=== PATIENT | female | born 2000 | race Caucasian/White ===

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

== ENCOUNTER 2019-12-15 16:07 | Emergency (ER) | payer BC ==
[2019-12-15 16:22] VITALS: BP 97/59
[2019-12-15] MEDS ORDERED: Lidocaine 1% MPF ** 5 ML VIAL INJ ONE (16:36)
--- NOTE | 2019-12-15 16:57 | ED ---
Upper Extremity Pain - HPI Summary HPI Summary: 19-year-old female presents with left little finger injury. She states she jammed it playing basketball. Unable to use the finger and there is deformity present. is right handed. This has never happened before. Denies any numbness or tingling. Has deformity noted to the finger. Has no medical conditions. - History of Current Complaint Chief Complaint: EDExtremityUpper Stated Complaint: FRACTURED FINGER PER EMS Time Seen by Provider: 12/15/19 16:23 Hx Last Menstrual Period: 03/25/14 - Allergies/Home Medications Allergies/Adverse Reactions: Allergies Allergy/AdvReac Type Severity Reaction Status Date / Time vancomycin Allergy Edema Verified 05/04/18 15:31 Home Medications: Home Medications NK [No Home Medications Reported] 12/15/19 [History Confirmed 12/15/19] PMH/Surg Hx/FS Hx/Imm Hx Endocrine/Hematology History: Denies: Hx Diabetes, Hx Thyroid Disease Cardiovascular History: Denies: Hx Hypertension Respiratory History: Denies: Hx Asthma, Hx Chronic Obstructive Pulmonary Disease (COPD) GI History: Denies: Hx Ulcer Infectious Disease History: No Infectious Disease History: Denies: Hx Clostridium Difficile, Hx Hepatitis, Hx Human Immunodeficiency Virus (HIV), Hx of Known/Suspected MRSA, Hx Tuberculosis, Hx Known/Suspected VRE , Traveled Outside the [place] in Last 30 Days - Family History Known Family History: Positive: Hypertension - Social History Alcohol Use: Occasionally Substance Use Type: Reports: None Smoking Status (MU): Never Smoked Tobacco Review of Systems Negative: Fever Negative: Chest Pain Negative: Shortness Of Breath Positive: Myalgia - left little finger All Other Systems Reviewed And Are Negative: Yes Physical Exam Triage Information Reviewed: Yes Vital Signs On Initial Exam: Initial Vitals Temp Pulse Resp BP Pulse Ox 97 F 71 18 97/59 100 12/15/19 16:17 12/15/19 16:17 12/15/19 16:17 12/15/19 16:17 12/15/19 16:17 Vital Signs Reviewed: Yes Appearance: Positive: Well-Appearing Skin: Positive: Warm, Dry Head/Face: Positive: Normal Head/Face Inspection Eyes: Positive: Normal, Conjunctiva Clear ENT: Positive: Pharynx normal Respiratory/Lung Sounds: Positive: Clear to Auscultation, Breath Sounds Present Cardiovascular: Positive: Normal, RRR Musculoskeletal: Positive: Other - deformity to left little finger, capillary refill<2secs Neurological: Positive: Normal Psychiatric: Positive: Normal Procedures - Sedation Patient Received Moderate/Deep Sedation with Procedure: No - Joint Reduction left little finger Joint Reduction Site: other Specify Other Joint Reduced: left little finger Conscious Sedation: No Reduction Attempts: 1 Pre-Procedure NV Exam: Yes Post Joint Reduction Film: joint reduced Diagnostics - Vital Signs Vital Signs Temp Pulse Resp BP Pulse Ox 12/15/19 16:17 97 F 71 18 97/59 100 - Laboratory Lab Statement: Any lab studies that have been ordered have been reviewed, and results considered in the medical decision making process. - Radiology finger Radiology Interpretation Completed By: Radiologist Summary of Radiographic Findings: IMPRESSION: 1. LEFT FIFTH PIP SUBLUXATION WITH RADIALWARD ANGULATION. 2. NO DISPLACED FRACTURE IDENTIFIED. Course/Dx - Course Course Of Treatment: 19-year-old female presents with left little finger injury. She states she jammed it playing basketball. Unable to use the finger and there is deformity present. is right handed. This has never happened before. Denies any numbness or tingling. Has deformity noted to the finger. Has no medical conditions. On exam deformity noted to left little finger. Neurovascular intact. X-ray shows dislocation. placed digital block and reduced finger. X-ray shows reduction. Placed in finger splint. We'll have follow-up with orthopedic. Patient understands and agrees with plan. - Diagnoses Differential Diagnosis/HQI/PQRI: Positive: Fracture (Closed), Other - dislocation Provider Diagnoses: Dislocation of left little finger Discharge ED - Sign-Out/Discharge Documenting (check all that apply): Patient Departure - Discharge Plan Condition: Good Disposition: HOME Patient Education Materials: Finger Dislocation (ED) Referrals: Kylee Lagos MD [Primary Care Provider] - Suhas Valente MD [Medical Doctor] - Additional Instructions: Keep finger in splint Follow up with ortho or primary Take tyenlol or ibuprofen for pain every 6 hours Return to ED if develop any new or worsening symptoms - Billing Disposition and Condition Condition: GOOD Disposition: Home
== END 2019-12-15 18:08 | disposition home or self-care (01) ==
LOC: ED 16:07
DX: S63.257A Unspecified dislocation of left little finger, initial encounter (principal); W23.0XXA Caught, crushed, jammed, or pinched between moving objects, initial encounter; Y93.67 Activity, basketball; Y92.9 Unspecified place or not applicable
CPT/HCPCS: 73140; 99282